=== PATIENT | male | born 1955 | race Caucasian/White ===

== ENCOUNTER 2019-01-04 15:01 | Emergency (ER) | payer OTHER, MEDICAID ==
[~2019-01-04] VITALS: Ht 175.3 cm; Wt 67.0 kg
[2019-01-04] MEDS ORDERED: KETOROLAC 60MG/2ML VIAL IM ONE (16:45)
[2019-01-04] MEDS ORDERED: MORPHINE SULFATE 10 MG/ML CPJ IM ONE (16:45)
[2019-01-04] MEDS ORDERED: LIDOCAINE 1%/EPI 1:100,000 10 ML VIAL IJ ONE (16:45)
[2019-01-04] MEDS ORDERED: BACITRACIN ZINC OINT UDPKT TOP ONE (16:45)
[2019-01-04] MEDS ORDERED: LIDOCAINE HCL/EPINEPHRINE 1%-EPI 1:100,000 20 ML VIAL INFIL NR (17:30)
[2019-01-04 19:37] VITALS: BP 114/59
== END 2019-01-04 19:38 | disposition home or self-care (01) ==
LOC: ER 15:01
DX: L02.31 Cutaneous abscess of buttock (principal); N49.3 Fournier gangrene
CPT/HCPCS: 10060; 96372; 99283; 99406; J1885; J2270; J3490; Z7610